=== PATIENT | female | born 1970 | race Caucasian/White ===

== ENCOUNTER 2020-04-11 21:37 | Emergency (ER) | payer BC ==
[~2020-04-11] VITALS: Ht 167.6 cm; Wt 102.3 kg
[~2020-04-11 21:37] MED LIST: CETIRIZINE PO; EFFEXOR25 M1 PO; MOTRIN 800800 MG/TAB PO; NEXIUM 40MG40 MG PO; PERCOCET 325 MG1 TA2 PO; PREDNISONE20 MG PO
[2020-04-11 21:42] VITALS: TEMP 98.2
[2020-04-11] MEDS ORDERED: WELLBUTRIN XL150 MG PO (21:47)
[2020-04-11] MEDS ORDERED: LEXAPRO 5MG5 MG PO (21:47)
[2020-04-11] MEDS ORDERED: DESYREL 50MG50 MG PO (21:48)
[2020-04-11 22:11] LABS: BASO % 0.2 % (0.0-2.0); EOS # 0.1 (0.0-0.7); EOS % 1.3 % (0-4.0); GRAN # 5.5 (1.4-6.5); GRAN % 61.3 % (42.2-75.2); HEMATOCRIT 38.9 % (37.0-47.0); HEMOGLOBIN 12.6 g/dl (12.5-16.0); LYMPH # 2.6 (1.2-3.4); LYMPH % 28.8 % (20.0-51.0); MEAN CELL VOLUME 91 fl (80.0-100.0); MEAN CORPUSCULAR HEMOGLOBIN 30 pg (27.0-31.0); MEAN CORPUSCULAR HGB CONC 32 g/dl (33.0-37.0); MEAN PLATELET VOLUME 9.7 fl (7.4-10.4); MONO # 0.7 (0.1-0.6); MONO % 8.2 % (1.7-9.3); PLATELET COUNT 250 K/mm3 (130-400); RED BLOOD COUNT 4.27 M/mm3 (4.10-5.30); REDCELL DISTRIBUTION WIDTH-CV 12.6 % (11.5-14.5)
[2020-04-11 22:18] LABS: ALANINE AMINOTRANSFERASE 25 U/L (4-34); ALBUMIN 4.5 gm/dL (3.5-5.0); ALKALINE PHOSPHATASE 89 U/L (50-136); ANION GAP 8 mmol/L (7-16); AST,SGOT 32 U/L (15-37); BILIRUBIN,TOTAL 0.5 mg/dL (0.0-1.0); BLOOD UREA NITROGEN 17 mg/dL (7-17); CALCIUM 9.3 mg/dL (8.4-10.2); CARBON DIOXIDE 30 mmol/L (22-30); CHLORIDE 99 mmol/L (98-107); CREATININE, serum 0.75 (0.52-1.25); GLUCOSE 113 mg/dL (74-106); POTASSIUM 3.7 mmol/L (3.4-5.0); SODIUM 137 mmol/L (137-145); TOTAL PROTEIN 7.3 gm/dL (6.4-8.2)
[2020-04-11 22:20] LABS: C-REACTIVE PROTEIN < 0.5 mg/dL (0.0-0.9)
[2020-04-11 23:01] LABS: TROPONIN-I < 0.012 ng/mL (0.000-0.035)
[2020-04-12 01:20] LABS: PROTHROMBIN TIME 10.6 SECONDS (9.7-12.8)
[2020-04-12 02:45] VITALS: BP 124/68; PULSE 82
== END 2020-04-12 02:50 | disposition short-term general hospital (02) ==
LOC: COL.ER 21:37
PROVIDERS: Nurse Practitioner
DX: I21.4 Non-ST elevation (NSTEMI) myocardial infarction (principal)
CPT/HCPCS: J1644; J7030; Q9967

== ENCOUNTER 2020-06-09 14:32 | Outpatient (RCR) | payer BC ==
[~2020-06-09 14:32] MED LIST changes: +DESYREL 50MG50 MG PO; +LEXAPRO 5MG5 MG PO; +WELLBUTRIN XL150 MG PO
== END 2020-06-18 14:43 | disposition home or self-care (01) ==
LOC: COL.CR 14:32
DX: I21.9 Acute myocardial infarction, unspecified (principal)

== ENCOUNTER → 2021-01-06 | Outpatient (CLI) | payer BC | LOC: MC.RAD 16:40 | DX: Z12.31 Encounter for screening mammogram for malignant neoplasm of breast (principal) ==

== ENCOUNTER → 2023-04-14 | Outpatient (CLI) | payer BC | LOC: MC.RAD 10:16 | DX: Z12.31 Encounter for screening mammogram for malignant neoplasm of breast (principal) ==